=== PATIENT | female | born 1945 | race Caucasian/White ===

== ENCOUNTER 2018-04-01 11:36 | Observation (INO) | payer OTHER ==
[~2018-04-01] VITALS: Ht 154.9 cm; Wt 118.0 kg
[2018-04-01 11:39] VITALS: Ht 154.9 cm; Wt 118.0 kg
[2018-04-01 14:09] LABS: BASOPHIL % 0.5 % (0-2); PLATELET COUNT 192 x10^3mcL (130-400); RED CELL DISTRIBUTION WIDTH 14.2 % (11.5-14.5)
[2018-04-01 14:28] LABS: CALCIUM 9.3 mg/dL (8.5-10.1); CARBON DIOXIDE 28.8 mmol/L (21-32); POTASSIUM SERUM 4.2 mmol/L (3.5-5.1)
[2018-04-01 14:32] LABS: BILIRUBIN TOTAL 1.2 mg/dL (0.20-1.00)
[2018-04-01 14:37] LABS: ALBUMIN 3.1 g/dL (3.4-5.0); TOTAL PROTEIN, SERUM 8.3 g/dL (6.4-8.2)
[2018-04-01 14:41] LABS: microscopic required? YES; urine erythrocyte TRACE (NEGATIVE)
[2018-04-01] MEDS ORDERED: PRA40 PO (17:11)
[2018-04-01] MEDS ORDERED: CARVEDILOL25 M1 PO (17:11)
[2018-04-01] MEDS ORDERED: ZESTRIL20 MG PO (17:11)
[2018-04-01] MEDS ORDERED: OMEPRAZOLE20 M4 PO (17:12)
[2018-04-01] MEDS ORDERED: MIRAPEX0.25 MG PO (17:12)
[2018-04-01] MEDS ORDERED: ALDACTONE25 MG PO (17:12)
[2018-04-01 19:12] VITALS: BP 109/60
[2018-04-01 21:50] VITALS: BP 127/86
[2018-04-02 05:45] VITALS: BP 114/56
[2018-04-02 06:01] LABS: BASOPHIL % 0.6 % (0-2); PLATELET COUNT 162 x10^3mcL (130-400)
[2018-04-02 06:02] LABS: RED CELL DISTRIBUTION WIDTH 14.7 % (11.5-14.5)
[2018-04-02 06:19] LABS: CALCIUM 9.3 mg/dL (8.5-10.1); CARBON DIOXIDE 27.8 mmol/L (21-32); CREATININE SERUM 1.2 mg/dL (0.6-1.0); POTASSIUM SERUM 4.1 mmol/L (3.5-5.1)
[2018-04-02 09:02] VITALS: BP 103/37
[2018-04-02 17:32] VITALS: BP 129/55
[2018-04-02 21:06] VITALS: BP 128/55
[2018-04-03 05:05] VITALS: BP 133/50
[2018-04-03 05:57] LABS: BASOPHIL % 0.4 % (0-2); PLATELET COUNT 162 x10^3mcL (130-400)
[2018-04-03 06:22] LABS: CALCIUM 9.3 mg/dL (8.5-10.1); CARBON DIOXIDE 26.9 mmol/L (21-32); CREATININE SERUM 1.2 mg/dL (0.6-1.0); MAGNESIUM 1.7 mg/dL (1.8-2.4); POTASSIUM SERUM 4.2 mmol/L (3.5-5.1)
[2018-04-03 07:03] LABS: RED CELL DISTRIBUTION WIDTH 14.7 % (11.5-14.5)
[2018-04-03 09:00] VITALS: BP 137/66
[2018-04-03] MEDS ORDERED: CIPRO500 MG PO (11:14)
[2018-04-03] MEDS ORDERED: FLA500 PO (11:15)
[2018-04-03] MEDS ORDERED: NORCO1 TA2 PO (11:16)
[2018-04-03 13:08] VITALS: BP 137/66
== END 2018-04-03 15:56 | disposition home or self-care (01) | DRG 392 ==
LOC: ED 11:36 → MU 17:22
PROVIDERS: Emergency Medicine; Internal Medicine; Internal Medicine Pulmonary Disease
DX: K52.9 Noninfective gastroenteritis and colitis, unspecified (principal); K57.92 Diverticulitis of intestine, part unspecified, without perforation or abscess without bleeding; I10 Essential (primary) hypertension; E78.5 Hyperlipidemia, unspecified; E86.9 Volume depletion, unspecified; Z96.651 Presence of right artificial knee joint
CPT/HCPCS: 87046; 87046-59; G0378; J2270; J2543; J3475; J3490; J7030; J7120

== ENCOUNTER 2018-07-27 17:21 | Emergency (ER) | payer OTHER | END 2018-07-27 23:18 | disposition home or self-care (01) | LOC: ED 17:21 ==

== ENCOUNTER 2020-06-20 11:12 | Emergency (ER) | payer OTHER ==
[~2020-06-20] VITALS: Ht 154.9 cm; Wt 123.8 kg
[~2020-06-20 11:12] MED LIST: ALDACTONE25 MG PO; CARVEDILOL25 M1 PO; CIPRO500 MG PO; FLA500 PO; MIRAPEX0.25 MG PO; NORCO1 TA2 PO; OMEPRAZOLE20 M4 PO; PRA40 PO; ZESTRIL20 MG PO
[2020-06-20 11:21] VITALS: Ht 154.9 cm; Wt 123.8 kg
[2020-06-20 12:08] LABS: microscopic required? YES; urine erythrocyte NEGATIVE (NEGATIVE)
[2020-06-20] MEDS ORDERED: KEFLEX500 M1 PO (13:53)
[2020-06-20 14:38] VITALS: BP 156/66
[2020-06-20] MEDS ORDERED: [UNRECOGNIZED DRUG - OTHER] PO (14:56)
[2020-06-20] MEDS ORDERED: IBU400 M2 PO (14:56)
[2020-06-20] MEDS ORDERED: CYCLOBENZAPRINE10 M1 PO (14:56)
== END 2020-06-20 15:18 | disposition home or self-care (01) ==
LOC: ED 11:12
PROVIDERS: Emergency Medicine
DX: N39.0 Urinary tract infection, site not specified (principal); M79.651 Pain in right thigh; I10 Essential (primary) hypertension; E78.00 Pure hypercholesterolemia, unspecified